=== PATIENT | female | born 1935 | race Caucasian/White ===

== ENCOUNTER 2017-10-11 11:00 | Outpatient (CLI) | payer MEDICARE ==
--- NOTE | 2017-10-11 14:01 | RAD ---
TWO VIEW CHEST: History: Chest congestion. Comparison: 12-14-14 FINDINGS: Lungs remain clear. No infiltrate identified. Heart and mediastinum are unremarkable. Mild aortic lesly cification. Osseous structures unremarkable. IMPRESSION: No evidence of acute process. POS: [facility]
== END 2017-10-11 11:01 | disposition home or self-care (01) ==
LOC: MADRAD 11:00
PROVIDERS: ATTEND Obstetrics & Gynecology
DX: R09.89 Other specified symptoms and signs involving the circulatory and respiratory systems (principal)
CPT/HCPCS: 71020

== ENCOUNTER 2017-10-19 13:51 | Emergency (ER) | payer MEDICARE ==
[2017-10-19 14:52] LABS: #Eosinphils 0.1 thou/uL (0.0-0.7); #Lymphocytes 0.5 thou/uL (1.20-3.40); #Monocytes 0.3 thou/uL (0.11-0.59); #Neutrophils 2.3 thou/uL (1.40-6.50); %Basophils 1.2 % (0.0-1.0); %Eosinophils 2.7 % (0.0-10.0); %Lymphocytes 14.4 % (21.0-51.0); %Monocytes 8.5 % (0.0-10.0); %Neutrophils 73.3 % (42.0-75.0); Hemoglobin 11.9 g/dL (12.0-16.0); Mean Corpuscular HGB CONC 34.1 g/dL (32.0-36.0); Mean Corpuscular Hemoglobin 32.5 pg (27.0-31.0); Mean Corpuscular Volume 95.1 fl (81.0-99.0); Mean Platelet Volume 8.1 fL (7.4-10.4); PLT Morphology Comment Appears Decreased; Platelet Count 53 thou/uL (130-400); RBC Distribution Width 13.1 % (11.5-14.5); Red Blood Cell (RBC) Count 3.67 mill/uL (4.20-5.40); White Blood Cell (WBC) Count 3.1 thou/uL (4.8-10.8)
[2017-10-19 14:56] LABS: ALT (SGPT) 15 U/L (8-55); AST (SGOT) 45 U/L (5-34); Albumin 2.7 g/dL (3.4-4.8); Alkaline Phosphatase 145 U/L (40-150); Anion Gap 8 mmol/L (10-20); BUN (Urea Nitrogen) 21 mg/dL (9.8-20.1); Bilirubin, Total 1.9 mg/dL (0.2-1.2); Calc. Creatinine Clearance 0 mL/min (70-130); Calcium 8.6 mg/dL (7.8-10.44); Carbon Dioxide 30 mmol/L (23-31); Chloride 110 mmol/L (98-107); Estimated GFR-MDRD 88; Globulin 4.4 g/dL (2.4-3.5); Glucose 113 mg/dL (83-110); Potassium 3.8 mmol/L (3.5-5.1); Protein, Total 7.1 g/dL (6.0-8.3); Sodium 144 mmol/L (136-145)
--- NOTE | 2017-10-19 16:00 | CT ---
CT BRAIN WITHOUT CONTRAST: 10/19/17 HISTORY: Injury. Headache. FINDINGS: Comparison is made with the exam dated 11/09/16. 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 No evidence of acute infarct, hemorrhage, midline shift, or abnormal extra-axial fluid collections are seen. The hector tricular size is stable and basilar cisterns patent. No acute calvarial fractures are identified. The re is fluid in the paranasal sinuses. IMPRESSION: No CT evidence of acute intracranial process. POS: [facility]
--- NOTE | 2017-10-19 16:02 | CT ---
CT CERVICAL SPINE NONCONTRAST: HISTORY: Neck injury with pain. FINDINGS: Vertebral body heights and alignment are maintained. The cervicothoracic junction is intact. No acu te fracture or dislocation is apparent. There is osteophytosis throughout the vertebral bodies and f acets. Foraminal stenosis appears most severe on the right at the C6-C7 level. IMPRESSION: Cervical spondylosis. No acute osseous abnormalities are demonstrated. POS: [facility]
--- NOTE | 2017-10-19 16:06 | RAD ---
RIGHT SHOULDER THREE VIEWS: HISTORY: Right shoulder pain. FINDINGS: Acromioclavicular and glenohumeral alignment are maintained. Very mild osteophytosis is present. No acute fracture or dislocation. No aggressive osseous erosions. IMPRESSION: No acute osseous abnormalities are demonstrated. POS: [facility]
--- NOTE | 2017-10-19 16:07 | RAD ---
RIGHT HIP TWO VIEW: 10/19/17 HISTORY: Injury. COMPARISON: None. FINDINGS: No displaced fracture or malalignment of the right hip. Mild narrowing. Enthesopathic changes of righ t greater trochanter. IMPRESSION: Degenerative changes. No displaced fracture or malalignment. POS: [facility]
== END 2017-10-19 16:27 | disposition home or self-care (01) ==
LOC: MADERS 13:51
DX: S40.011A Contusion of right shoulder, initial encounter (principal); S70.01XA Contusion of right hip, initial encounter; S00.93XA Contusion of unspecified part of head, initial encounter; I69.351 Hemiplegia and hemiparesis following cerebral infarction affecting right dominant side; I48.91 Unspecified atrial fibrillation; K74.60 Unspecified cirrhosis of liver; Z79.899 Other long term (current) drug therapy; W08.XXXA Fall from other furniture, initial encounter
CPT/HCPCS: 36416; 70450; 72125; 80053; 85025; 36415-59

== ENCOUNTER 2018-03-13 13:43 | Outpatient (CLI) | payer MEDICARE ==
[2018-03-13 14:05] LABS: Bilirubin Negative (Negative); Blood, Urine Trace (Negative); Clarity Clear (Clear); Glucose, Urine (Dipstick) Negative (Negative); Leukocyte Small (Negative); Nitrite Negative (Negative); Protein, Urine (Dipstick) Trace mg/dL (Neg-Trace); Specific Gravity, Urine 1.015 (1.005-1.030)
[2018-03-13 14:32] LABS: RBC/HPF 0-3 HPF (0-3)
[2018-03-13 14:33] LABS: Bacteria/HPF Rare-Few HPF (None Seen)
== END 2018-03-13 13:44 | disposition home or self-care (01) ==
LOC: MADLAB 13:43
PROVIDERS: ATTEND Family Medicine
DX: C22.0 Liver cell carcinoma (principal)
CPT/HCPCS: 81001